=== PATIENT | female | born 1980 | race Caucasian/White ===

== ENCOUNTER 2019-02-02 15:03 | Emergency (ER) | payer OTHER ==
[2019-02-02 15:09] VITALS: BP 121/65; PULSE 71; TEMP 98.2; BMI 22.6
--- NOTE | 2019-02-02 15:39 | PDOC ---
History of Present Illness - General Chief Complaint: Eye Problem Stated Complaint: PAIN IN RT. EYE Time Seen by Provider: 02/02/19 15:28 - History of Present Illness Initial Comments: 02/02/19 15:35 38-year-old female without comorbidities presents for right eye redness 2 days without any precipitating traumatic event systemic symptoms. No changes in vision. Past History - Past Medical History Allergies/Adverse Reactions: Allergies Allergy/AdvReac Type Severity Reaction Status Date / Time No Known Drug Allergies Allergy Verified 02/02/19 15:08 Home Medications: Ambulatory Orders Vit/Iron Fum/Folic AC [ Tablet] 1 tab PO DAILY 04/12/15 Oxycodone HCl/Acetaminophen [Percocet 5/325 -] 1 - 2 tab PO Q6H #20 tab Asthma: No Cancer: No Cardiac Disorders: No COPD: No Diabetes: No HTN: No Seizures: No Thyroid Disease: No - Suicide/Smoking/Psychosocial Hx Smoking History: Never smoked Have you smoked in the past 12 months: No Information on smoking cessation initiated: No Hx Alcohol Use: No Drug/Substance Use Hx: No Substance Use Type: None Hx Substance Use Treatment: No Review of Systems - Review of Systems HEENTM: Yes: See HPI. No: Eye Pain, Blurred Vision, Tearing, Recent change in vision, Double Vision *Physical Exam - Vital Signs Last Vital Signs Temp Pulse Resp BP Pulse Ox 98.2 F 71 18 121/65 100 02/02/19 15:07 02/02/19 15:07 02/02/19 15:07 02/02/19 15:07 02/02/19 15:07 - Physical Exam Comments: 02/02/19 15:36 HEAD: NC/AT EYES: Conjuntiva clear on the left erythemic on the right medially MS: Full ROM in all joints without edema NEUROLOGIC: No gross sensory or motor deficits, NVID SKIN: Normal color and temperature no lesions or rashes Medical Decision Making - Medical Decision Making 02/02/19 15:36 Nothing to do for subconjunctival hemorrhage follow-up with ophthalmology should there be further issues. *DC/Admit/Observation/Transfer Diagnosis at time of Disposition: Subconjunctival hemorrhage - Discharge Dispostion Disposition: HOME Condition at time of disposition: Stable Decision to Admit order: No - Referrals Referrals: Alek Greene MD [Staff Physician] - - Patient Instructions Printed Discharge Instructions: DI for Subconjunctival Hemorrhage Additional Instructions: Return to the emergency room should you've experience further issues. Follow-up with ophthalmology in 1-2 days for further evaluation and treatment options. Follow-up with ophthalmology in 1-2 days without fail. - Post Discharge Activity
== END 2019-02-02 15:56 | disposition home or self-care (01) ==
LOC: JERFT 15:03
DX: H11.31 Conjunctival hemorrhage, right eye (principal)
CPT/HCPCS: 99281-25